=== PATIENT | female | born 1970 | race Caucasian/White ===

== ENCOUNTER 2024-01-05 15:12 | Emergency (ER) | payer OTHER ==
[2024-01-05 16:35] LABS: BASOPHILS ABSOLUTE AUTO 0.06 K/uL (0.02-0.10); BASOPHILS PERCENT AUTO 0.9 % (0.0-0.5); EOSINOPHILS ABSOLUTE AUTO 0.35 K/uL (0.04-0.40); EOSINOPHILS PERCENT AUTO 5.3 % (1.0-5.0); HEMATOCRIT 41.3 % (37.0-47.0); HEMOGLOBIN 13.8 g/dL (11.5-16.5); LYMPHOCYTES ABSOLUTE AUTO 2.02 K/uL (1.50-4.00); LYMPHOCYTES PERCENT AUTO 30.6 % (20.0-40.0); MEAN CORPUSCULAR HEMOGLOBIN 30.9 pg (27.0-32.0); MEAN CORPUSCULAR HGB CONC 33.4 g/dL (31.0-35.0); MEAN CORPUSCULAR VOLUME 93 fL (76-96); MEAN PLATELET VOLUME 10.2 fL (6.0-10.0); MONOCYTES ABSOLUTE AUTO 0.53 K/uL (0.20-0.80); NEUTROPHILS ABSOLUTE AUTO 3.65 K/uL (2.00-7.50); NEUTROPHILS PERCENT AUTO 55.2 % (45.0-70.0); PLATELET COUNT,PLT 212 K/uL (150-500); RED BLOOD CELL COUNT 4.46 M/uL (3.80-5.80); WHITE BLOOD CELL COUNT,WBC 6.6 K/uL (4.0-11.0)
[2024-01-05 16:54] LABS: A/G RATIO 1.2 (0.8-2.0); ALANINE AMINOTRANSFERASE,ALT 24 U/L (12-78); ALBUMIN 3.8 g/dL (3.4-5.0); ALKALINE PHOSPHATASE 91 U/L (46-116); ANION GAP 13.2 mmol/L (5.0-15.0); ASPARTATE AMNIOTRANSFERASE,AST 16 U/L (15-37); BILIRUBIN TOTAL 0.2 mg/dL (0.0-1.0); BLOOD UREA NITROGEN,BUN 12 mg/dL (8-26); BUN/CREATININE RATIO 14.6 (6-25); CALCIUM 8.5 mg/dL (8.5-10.1); CARBON DIOXIDE,CO2 27.9 mmol/L (21.0-32.0); CHLORIDE,CL 106 mmol/L (98-107); CREATININE 0.82 mg/dL (0.55-1.02); EST CRCL DRUG DOSING (CG) 65.63 mL/min; ESTIMATED GFR 85 mL/min (>60); GLUCOSE RANDOM 102 mg/dL (74-100); POTASSIUM,K 4.1 mmol/L (3.5-5.1); PROTEIN TOTAL,TP 6.9 g/dL (6.4-8.2); SODIUM,NA 143 mmol/L (136-145)
[2024-01-05 17:11] LABS: TROPONIN I HIGH SENSITIVITY < 4.0 pg/ml (<=60.4)
[2024-01-05 17:28] LABS: INFLUENZA A NAA NEGATIVE (NEGATIVE); INFLUENZA B NAA NEGATIVE (NEGATIVE)
[2024-01-05 17:30] LABS: CORONAVIRUS COVID-19 NAA NEGATIVE (NEGATIVE)
[2024-01-05] MEDS ORDERED: predniSONE 20 MG Tab ONE ×2 (18:19→18:30)
== END 2024-01-05 18:34 | disposition home or self-care (01) ==
LOC: LB.ED 15:12
DX: M94.0 Chondrocostal junction syndrome [Tietze] (principal); J45.909 Unspecified asthma, uncomplicated; Z88.0 Allergy status to penicillin; Z79.899 Other long term (current) drug therapy
CPT/HCPCS: 0240U; 36415; 71045; 80053; 84443; 84484; 85025; 86308; 86617; 93005; 99285; 99283; J7512